=== PATIENT | male | born 1980 | race Caucasian/White ===

== ENCOUNTER 2019-12-16 17:13 | Emergency (ER) | payer SELFPAY | END 2019-12-16 17:15 | disposition left against medical advice (07) | LOC: JD.ED 17:13 | DX: Z53.21 Procedure and treatment not carried out due to patient leaving prior to being seen by health care provider (principal) ==

== ENCOUNTER 2019-12-18 21:15 | Emergency (ER) | payer SELFPAY ==
[2019-12-18 21:40] VITALS: BP 145/99; PULSE 101
[2019-12-18] MEDS ORDERED: Lactated Ringers 1,000 ML IV SCH (21:45)
--- NOTE | 2019-12-18 21:48 | EDM.PDOCBH ---
ED HPI GENERAL MEDICAL PROBLEM - General Chief Complaint: Behavioral/Psych Stated Complaint: DRANK SEAFOAM Time Seen by Provider: 12/18/19 21:34 Source of Information: Reports: Other (Female roomate of the patient) History Limitations: Reports: Altered Mental Status - History of Present Illness INITIAL COMMENTS - FREE TEXT/NARRATIVE: The patient was dropped off by his female roommate, who told the patient's nurse that the patient has been behaving bizarrely for some period of time - it is unclear at this time how long. He has apparently been hallucinating, and a couple of days ago he tried to cut his penis off. He has been drinking a lot. Today he apparently drank some Sea Foam - a petroleum distillate with a hydrocarbon-based solvent and 10-30% isopropyl alcohol, intended to clean fuel injectors. It is unknown when, how much, or why. The woman has since gone home to retrieve the bottle of Sea Foam, and I will endeavor to talk with her when she returns. Here in the ED, the patient's BP is found to be mildly elevated, with slight tachycardia and mild tachypnea. He is afebrile, saturating 99% on room air. He is, for the most part, staring straight ahead with his hands out in front of him, not answering questions, only mumbling or saying no. The patient has not been to this facility in the past, therefore we have no past medical, surgical, or social history on record. Poison control was contacted, and they apparently only recommended that we check an acetaminophen level. Looking up the safety precautions for Sea Foam, they indicate that the product "May be fatal if swallowed and enter his airways. May result in aspiration into the lungs, causing chemical pneumonia. May cause gastrointestinal irritation, nausea, vomiting and diarrhea." They indicate "Do NOT induce vomiting." It is unknown if the patient has a PCP. - Related Data Allergies Allergy/AdvReac Type Severity Reaction Status Date / Time No Known Allergies Allergy Verified 12/18/19 21:40 Home Meds: Home Meds . [No Known Home Meds] 12/18/19 [History] Past Medical History - Past Surgical History HEENT Surgical History: Reports: Oral Surgery (wisdom teeth extraction), Tonsillectomy Social & Family History - Tobacco Use Smoking Status *Q: Current Every Day Smoker Years of Tobacco use: 22 Packs/Tins Daily: 1 - Caffeine Use Caffeine Use: Reports: Other Other Caffeine Use: unable to answer - Alcohol Use Alcohol Use History: Yes - Recreational Drug Use Recreational Drug Use: Yes Recreational Drug Type: Reports: Amphetamines (Speed), Cocaine, Ecstasy, Heroin , LSD (Acid), Marijuana/Hashish, Methamphetamine, Psilocybin (Mushrooms) - Living Situation & Occupation Living situation: Reports: Single, Other (with a roomate) Occupation: Unemployed ED ROS GENERAL - Review of Systems Review Of Systems: Unable To Obtain Reason Not Obtained: Patient non-communicative ED EXAM, BEHAVIORAL HEALTH - Physical Exam Exam: See Below Exam Limited By: No Limitations (Cooperated with exam) General Appearance: Alert, WD/WN, Other Eye Exam: Bilateral Eye: EOMI, Normal Inspection Ears: Normal External Exam, Normal Canal, Hearing Grossly Normal, Normal TMs Nose: Normal Inspection, Normal Mucosa, No Blood Throat/Mouth: Normal Inspection, Normal Lips, Normal Gums, Normal Oropharynx ( No visible oropharyngeal lesions), No Airway Compromise Head: Atraumatic, Normocephalic Neck: Normal Inspection, Supple, Non-Tender, Full Range of Motion. No: Lymphadenopathy (L), Lymphadenopathy (R) Respiratory/Chest: No Respiratory Distress, Lungs Clear, Normal Breath Sounds, No Accessory Muscle Use Cardiovascular: Normal Peripheral Pulses, Regular Rate, Rhythm, No Edema, No Gallop, No JVD, No Murmur, No Rub GI/Abdominal: Normal Bowel Sounds, Soft, Non-Tender, No Organomegaly, No Distention, No Abnormal Bruit, No Mass (Male) Exam: Deferred Rectal (Males) Exam: Deferred Back Exam: Normal Inspection, Full Range of Motion, NT Extremities: Normal Inspection, Normal Range of Motion, No Pedal Edema, Normal Capillary Refill Neurological: No Motor/Sensory Deficits Skin Exam: Warm, Dry, Intact, Normal color, No rash EKG INTERPRETATION EKG Date: 12/18/19 Time: 21:49 Rhythm: NSR Rate (Beats/Min): 98 [place]: Normal P-Wave: Present QRS: Normal ST-T: Normal QT: Prolonged (QTc 477 ms) Comparison: NA - No Prior EKG COURSE, BEHAVIORAL HEALTH COMP - Course Vital Signs: Last Vital Signs Temp 36.6 C 12/18/19 21:36 Pulse 101 H 12/18/19 21:36 Resp 25 H 12/18/19 21:36 BP 145/99 H 12/18/19 21:36 Pulse Ox 99 12/18/19 21:36 Orders, Labs, Meds: Active Orders 24 hr Category Date Time Status EKG Documentation Completion [RC] STAT Care 12/18/19 21:39 Active Influenza Vaccine Charge [RC] .DISCHARGE Care 12/19/19 04:35 Active Chest 1V Frontal [CR] Stat Exams 12/18/19 21:40 Taken Lactated Ringers [Ringers, Lactated] 1,000 ml Med 12/18/19 21:45 Active IV ASDIRECTED Medication Orders Lactated Ringer's (Ringers, Lactated) 1,000 mls @ 150 mls/hr IV ASDIRECTED YAQUELIN Last Admin: 12/18/19 21:48 Dose: 150 mls/hr Laboratory Tests 12/18/19 12/18/19 12/18/19 Range/Units 21:28 21:28 21:28 WBC 15.48 H (4.23-9.07) K/mm3 RBC 4.82 (4.63-6.08) M/mm3 Hgb 15.8 (13.7-17.5) gm/dl Hct 45.7 (40.1-51.0) % MCV 94.8 H (79.0-92.2) fl MCH 32.8 H (25.7-32.2) pg MCHC 34.6 (32.2-35.5) g/dl RDW Std Deviation 45.9 H (35.1-43.9) fL Plt Count 346 H (163-337) K/mm3 MPV 9.4 (9.4-12.3) fl Neutrophils % (Manual) 87 H (40-60) % Band Neutrophils % 0 (0-10) % Lymphocytes % (Manual) 10 L (20-40) % Atypical Lymphs % 0 % Monocytes % (Manual) 1 L (2-10) % Eosinophils % (Manual) 2 (0.8-7.0) % Basophils % (Manual) 0 L (0.2-1.2) Platelet Estimate Adequate RBC Morph Comment Normal Puncture Site ABG pH (7.35-7.45) ABG pCO2 (35.0-45.0) mmHg ABG pO2 (80.0-100.0) mmHg ABG HCO3 (22.0-26.0) meq/L ABG O2 Saturation (96.0-97.0) % ABG Base Excess (-2-2.0) Sky Test A-a Gradient mmHg O2 Delivery Device FiO2 (21.00-100.00) % Sodium 137 (136-145) mEq/L Potassium 3.7 (3.5-5.1) mEq/L Chloride 100 (98-107) mEq/L Carbon Dioxide 30 (21-32) mEq/L Anion Gap 10.7 (5-15) BUN 8 (7-18) mg/dL Creatinine 0.9 (0.7-1.3) mg/dL Est Cr Clr Drug Dosing 120.84 mL/min Estimated GFR (MDRD) > 60 (>60) mL/min BUN/Creatinine Ratio 8.9 L (14-18) Glucose 97 (74-106) mg/dL Serum Osmolality 293 (280-300) mosm/kg Calcium 9.1 (8.5-10.1) mg/dL Total Bilirubin 0.3 (0.2-1.0) mg/dL AST 47 H (15-37) U/L ALT 106 H (16-63) U/L Alkaline Phosphatase 152 H (46-116) U/L Total Protein 7.4 (6.4-8.2) g/dl Albumin 3.8 (3.4-5.0) g/dl Globulin 3.6 gm/dL Albumin/Globulin Ratio 1.1 (1-2) TSH 3rd Generation 3.965 H (0.358-3.74) uIU/mL Salicylates 3.3 (2.8-20) mg/dL Urine Opiates Screen (VUQAPH=265) Ur Buprenorphine Scrn (CUTOFF=10) Ur Oxycodone Screen (ZSY4SD=608) Urine Methadone Screen (IAA5TN=547) Ur Propoxyphene Screen (WFPBEK=811) Acetaminophen 0 L (10-30) ug/mL Ur Barbiturates Screen (ZUGBAO=159) Ur Tricyclics Screen (ULCALZ=624) Ur Phencyclidine Scrn (CUTOFF=25) Ur Amphetamine Screen (RRLXAN=801) U Methamphetamines Scrn (QJFGVB=992) U Benzodiazepines Scrn (GLWGDI=296) U Cocaine Metab Screen (VHICQV=079) U Marijuana (THC) Screen (CUTOFF=50) Ethyl Alcohol 0.00 (0.00) gm% 12/18/19 12/18/19 12/19/19 Range/Units 21:58 22:44 01:36 WBC (4.23-9.07) K/mm3 RBC (4.63-6.08) M/mm3 Hgb (13.7-17.5) gm/dl Hct (40.1-51.0) % MCV (79.0-92.2) fl MCH (25.7-32.2) pg MCHC (32.2-35.5) g/dl RDW Std Deviation (35.1-43.9) fL Plt Count (163-337) K/mm3 MPV (9.4-12.3) fl Neutrophils % (Manual) (40-60) % Band Neutrophils % (0-10) % Lymphocytes % (Manual) (20-40) % Atypical Lymphs % % Monocytes % (Manual) (2-10) % Eosinophils % (Manual) (0.8-7.0) % Basophils % (Manual) (0.2-1.2) Platelet Estimate RBC Morph Comment Puncture Site Lt radial ABG pH 7.44 (7.35-7.45) ABG pCO2 40.4 (35.0-45.0) mmHg ABG pO2 90.0 (80.0-100.0) mmHg ABG HCO3 26.7 H (22.0-26.0) meq/L ABG O2 Saturation 98.0 H (96.0-97.0) % ABG Base Excess 2.7 H (-2-2.0) Sky Test Positive A-a Gradient 10 mmHg O2 Delivery Device Room air FiO2 21.00 (21.00-100.00) % Sodium 139 (136-145) mEq/L Potassium 3.9 (3.5-5.1) mEq/L Chloride 104 (98-107) mEq/L Carbon Dioxide 25 (21-32) mEq/L Anion Gap 13.9 (5-15) BUN 8 (7-18) mg/dL Creatinine 0.9 (0.7-1.3) mg/dL Est Cr Clr Drug Dosing 120.84 mL/min Estimated GFR (MDRD) > 60 (>60) mL/min BUN/Creatinine Ratio 8.9 L (14-18) Glucose 107 H (74-106) mg/dL Serum Osmolality (280-300) mosm/kg Calcium 8.8 (8.5-10.1) mg/dL Total Bilirubin 0.5 (0.2-1.0) mg/dL AST 41 H (15-37) U/L ALT 93 H (16-63) U/L Alkaline Phosphatase 135 H (46-116) U/L Total Protein 6.6 (6.4-8.2) g/dl Albumin 3.3 L (3.4-5.0) g/dl Globulin 3.3 gm/dL Albumin/Globulin Ratio 1.0 (1-2) TSH 3rd Generation (0.358-3.74) uIU/mL Salicylates (2.8-20) mg/dL Urine Opiates Screen Negative (NIBDRW=533) Ur Buprenorphine Scrn Negative (CUTOFF=10) Ur Oxycodone Screen Negative (LGV0UM=309) Urine Methadone Screen Negative (MDH9FX=583) Ur Propoxyphene Screen Presumptive positive (UQSWJW=361) Acetaminophen (10-30) ug/mL Ur Barbiturates Screen Negative (TDFZOI=796) Ur Tricyclics Screen Negative (TOOWKC=846) Ur Phencyclidine Scrn Negative (CUTOFF=25) Ur Amphetamine Screen Negative (CYPYAX=571) U Methamphetamines Scrn Negative (RGCMJY=327) U Benzodiazepines Scrn Negative (UAZVDL=169) U Cocaine Metab Screen Negative (ZAQUGE=444) U Marijuana (THC) Screen Negative (CUTOFF=50) Ethyl Alcohol (0.00) gm% 12/19/19 Range/Units 01:36 WBC (4.23-9.07) K/mm3 RBC (4.63-6.08) M/mm3 Hgb (13.7-17.5) gm/dl Hct (40.1-51.0) % MCV (79.0-92.2) fl MCH (25.7-32.2) pg MCHC (32.2-35.5) g/dl RDW Std Deviation (35.1-43.9) fL Plt Count (163-337) K/mm3 MPV (9.4-12.3) fl Neutrophils % (Manual) (40-60) % Band Neutrophils % (0-10) % Lymphocytes % (Manual) (20-40) % Atypical Lymphs % % Monocytes % (Manual) (2-10) % Eosinophils % (Manual) (0.8-7.0) % Basophils % (Manual) (0.2-1.2) Platelet Estimate RBC Morph Comment Puncture Site ABG pH (7.35-7.45) ABG pCO2 (35.0-45.0) mmHg ABG pO2 (80.0-100.0) mmHg ABG HCO3 (22.0-26.0) meq/L ABG O2 Saturation (96.0-97.0) % ABG Base Excess (-2-2.0) Sky Test A-a Gradient mmHg O2 Delivery Device FiO2 (21.00-100.00) % Sodium (136-145) mEq/L Potassium (3.5-5.1) mEq/L Chloride (98-107) mEq/L Carbon Dioxide (21-32) mEq/L Anion Gap (5-15) BUN (7-18) mg/dL Creatinine (0.7-1.3) mg/dL Est Cr Clr Drug Dosing mL/min Estimated GFR (MDRD) (>60) mL/min BUN/Creatinine Ratio (14-18) Glucose (74-106) mg/dL Serum Osmolality (280-300) mosm/kg Calcium (8.5-10.1) mg/dL Total Bilirubin (0.2-1.0) mg/dL AST (15-37) U/L ALT (16-63) U/L Alkaline Phosphatase (46-116) U/L Total Protein (6.4-8.2) g/dl Albumin (3.4-5.0) g/dl Globulin gm/dL Albumin/Globulin Ratio (1-2) TSH 3rd Generation (0.358-3.74) uIU/mL Salicylates 3.3 (2.8-20) mg/dL Urine Opiates Screen (AKUPXJ=804) Ur Buprenorphine Scrn (CUTOFF=10) Ur Oxycodone Screen (IFS1DS=499) Urine Methadone Screen (YNN0LV=925) Ur Propoxyphene Screen (ZHBBSK=093) Acetaminophen (10-30) ug/mL Ur Barbiturates Screen (JIXMQT=494) Ur Tricyclics Screen (XWAAWC=726) Ur Phencyclidine Scrn (CUTOFF=25) Ur Amphetamine Screen (RPBYLU=074) U Methamphetamines Scrn (NMXKUY=346) U Benzodiazepines Scrn (AMYPZI=596) U Cocaine Metab Screen (RSFCZL=181) U Marijuana (THC) Screen (CUTOFF=50) Ethyl Alcohol (0.00) gm% Medications Generic Name Dose Route Start Last Admin Trade Name Freq PRN Reason Stop Dose Admin Lactated Ringer's 1,000 mls @ 150 mls/hr 12/18/19 21:45 12/18/19 21:48 Ringers, Lactated IV 150 mls/hr ASDIRECTED YAQUELIN Administration Discontinued Medications Generic Name Dose Route Start Last Admin Trade Name Freq PRN Reason Stop Dose Admin Influenza Virus Vaccine 1 each 12/19/19 04:35 Pharmacy To Dose - Influenza Vaccine IM 12/19/19 04:36 ONETIME ONE Influenza Virus Vaccine 60 mcg 12/19/19 04:45 12/19/19 05:57 Fluzone Quad Syringe IM 12/19/19 04:46 60 mcg .ONCE ONE Administration Lorazepam 1 mg 12/18/19 23:44 12/18/19 23:49 Ativan IVPUSH 12/18/19 23:45 1 mg ONETIME STA Administration Medical Clearance: 12/18/19 22:53 Portable chest radiograph appears to be grossly normal. The cardiac silhouette is within normal limits. No pulmonary vascular congestion. No pleural effusions. No focal infiltrate. No pneumothorax. Formal read per the Radiologist pending. The patient's CBC is remarkable for a WBC count elevated at 15.48, but with 0% bandemia. His platelets are elevated at 346,000, with the remainder of his CBC being unremarkable. His CMP is remarkable for an AST/ALT mildly elevated at 47/106, respectively. His alkaline phosphatase is mildly elevated at 152, with the remainder of his CMP being unremarkable. His TSH is mildly elevated at 3.965. His serum osmolality is within normal limits at 293. His acetaminophen level is 0. His salicylate level is within normal limits at 3.3. His EtOH level is 0.00. His ABG is normal. His urine drug screen results are still pending. 12/18/19 23:07 The patient's urine drug screen is positive for propoxyphene, only, and is otherwise negative. Propoxyphene is a synthetic opioid found in Darvon and Darvocet, however, it is my understanding that it is no longer commercially available. Review of the [place] PMPi is negative. Propoxyphene can prolong the QT interval. 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 It's safety data website also indicates that it is "Harmful if swallowed." and "May be fatal if swallowed and enters airways." It recommends "Do NOT induce vomiting. " It further recommends that if ingested, that the patient drink 1-2 glasses of milk or water. After seeing of the patient will drink either milk or water, my plan is to keep the patient here in the ED overnight, then either admit him to the hospitalist, if his mental status is still altered, or arrange for psychiatric admission if he is lucid. 12/18/19 23:46 The patient's nurse recontacted poison control. They recommended that we repeat a CMP and salicylate level 4 hours after the initial labs. I have therefore ordered a repeat CMP and salicylate level to be drawn at 01:30. Erma DENNIS also requested some Ativan, as the patient has repeatedly gotten up. I ordered 1 mg IV. 12/19/19 04:08 The repeat CMP is remarkable for a blood glucose mildly elevated at 107, and AST /ALT mildly elevated at 41/93, and alkaline phosphatase mildly elevated at 135. Of his CMP is unremarkable. His salicylate level is within normal limits at 3.3. Notified that the patient is now more awake and lucid. 12/19/19 04:23 I sat down and talked with the patient. He is awake and alert, but I was not able to get much specific information from him. He only spoke in vague generalities. He knew that he was in the emergency department.I asked him if he knew how he got here, he told me that somebody dropped him off. I asked him if he knew why somebody dropped him off, and he told me that it was because somebody thought he needed to be dropped off. I asked him if he remembered drinking fuel injector house cleaner supervisor, and he stated that he did. I asked him why he did that, and he stated that he simply did not know. I asked him if it was because he intended to harm himself, and he stated no. I told him that people do not drink fuel injector house cleaner supervisor because it tastes good, and that the only reasonable reason someone would drink it would be to harm themselves, and to him if he agreed with me. He did. I asked him if he has ever attempted to harm himself in the past, and he said no. He denied having a prior psychiatric history, and denied ever being psychiatrically admitted previously, however, he did acknowledge that he has been to inpatient detox for both drugs and alcohol in the past. He denied that he is a heavy drinker, but was unable to tell me how many days a week he drinks, saying only "here and there". He stated that he has done numerous drugs in the past, but was unable to tell me when he last did any of them. He denied having any chronic medical problems, and stated that he does not take any medications on a regular basis. When asked him about his past surgical history, he was again vague. For example, he stated that he had, here and there, you know, feet and hands. When I asked him for specifics, if he had had surgery on his feet, he said yes. I asked him what kind of surgery he had had on his foot, and he was unable to say. I asked him if he had any pins or screws in his foot, and he said that yes, he thought he had some screws in his left foot. The same was for his hands, where he was looking at his hands and trying to decide if he had had any surgery on them. He stated that he drinks alcohol sometimes, but denied drinking heavily, and he was unable to see how many days a week he drinks. He acknowledged prior drug use, but was unable to tell me when he had used prior drugs. My conversation with the patient was discussed with Yusra DENNIS, who told me that the patient was much more lucid when she had spoken with him, asking when he could get some breakfast and whether or not he could watch television. This leads me to suspect that the patient's vague answers to me were an attempt at evasion, however, the patient's roommate report of him hallucinating and attempting to cut his penis off suggests a psychotic issue. I believe the patient would be best served if evaluated by a Psychiatrist. 12/19/19 05:01 Case discussed with Kenisha at [facility] at 04:46. Case then discussed with Dr. Leroy, Psychiatrist at [facility], at 04: 55. He accepted the patient for admission to their psychiatric unit. He requested that I place the patient under a 24-hour hold. 12/19/19 05:05 Notified by Yusra DENNIS that in her discussion with Kenisha at [facility], they have determined that the birthdate that we have for the patient is incorrect, that his actual birthday is 1980 (not 1979), and that the patient has in fact been here before. He was here in 2016 for medical clearance after smoking methamphetamine, then here again 2 days ago, but left without being seen. 12/19/19 06:37 2 members of the [facility]'s department have arrived to transport the patient to [place]. Departure - Departure Time of Disposition: 05:05 Disposition: DC/Tfer to Psych Hosp/Unit 65 Condition: Good Clinical Impression: Suicide attempt - Discharge Information *PRESCRIPTION DRUG MONITORING PROGRAM REVIEWED*: Not Applicable *COPY OF PRESCRIPTION DRUG MONITORING REPORT IN PATIENT ELZBIETA: Not Applicable Referrals: PCP,None [Primary Care Provider] - Forms: ED Department Discharge Sepsis Event Note - Evaluation Sepsis Screening Result: No Definite Risk - Focused Exam Vital Signs: Vital Signs Temp Pulse Resp BP Pulse Ox 12/18/19 21:36 36.6 C 101 H 25 H 145/99 H 99 Date Exam was Performed: 12/19/19 Time Exam was Performed: 06:37 - My Orders Last 24 Hours: My Active Orders 12/18/19 21:39 EKG Documentation Completion [RC] STAT 12/18/19 21:40 Chest 1V Frontal [CR] Stat 12/18/19 21:45 Lactated Ringers [Ringers, Lactated] 1,000 ml IV ASDIRECTED 12/19/19 04:35 Influenza Vaccine Charge [RC] .DISCHARGE - Assessment/Plan Last 24 Hours: My Active Orders 12/18/19 21:39 EKG Documentation Completion [RC] STAT 12/18/19 21:40 Chest 1V Frontal [CR] Stat 12/18/19 21:45 Lactated Ringers [Ringers, Lactated] 1,000 ml IV ASDIRECTED 12/19/19 04:35 Influenza Vaccine Charge [RC] .DISCHARGE
[2019-12-18 22:12] LABS: ACETAMINOPHEN 0 ug/mL (10-30)
[2019-12-18] MEDS ORDERED: LORazepam 2 MG/ML SDV IVPUSH STA (23:44)
[2019-12-19] MEDS ORDERED: FLU Vacc QS2019-20(6MOS+)/PF 60 MCG/0.5 ML SYRINGE IM ONE (04:45)
--- NOTE | 2019-12-19 10:28 | CR ---
Chest: Portable view of the chest was obtained. Comparison: No prior chest imaging is available. Heart size and mediastinum are normal. Lungs are clear with no acute parenchymal change. Bony structures are grossly intact. Impression: 1. Nothing acute is identified on portable chest x-ray. Diagnostic code #1 This report was dictated in MDT
== END 2019-12-19 06:43 ==
LOC: EDBD 21:15 → MERGE 21:15 → JD.ED 21:15
DX: T51.2X2A Toxic effect of 2-Propanol, intentional self-harm, initial encounter (principal); T52.0X2A Toxic effect of petroleum products, intentional self-harm, initial encounter; F17.210 Nicotine dependence, cigarettes, uncomplicated
CPT/HCPCS: 36415; 36600; 71045; 80053; 80306; 80307; 82803; 83930; 84443; 85007; 85027; 90471; 90686; 93005; 96361; 96374; 99285; J2060; J7120; 93010; G0008

== ENCOUNTER 2020-12-18 15:36 | Emergency (ER) | payer SELFPAY ==
[2020-12-18 15:53] VITALS: BP 139/96; PULSE 86
--- NOTE | 2020-12-18 16:25 | EDM.PDOCBH ---
ED HPI GENERAL MEDICAL PROBLEM - General Chief Complaint: Behavioral/Psych Stated Complaint: NOT COMMUNICATING WELL/CONFUSED Time Seen by Provider: 12/18/20 15:59 Source of Information: Reports: Patient, RN Notes Reviewed History Limitations: Reports: No Limitations - History of Present Illness INITIAL COMMENTS - FREE TEXT/NARRATIVE: Patient is a 40-year-old male who presents to the ER for the evaluation of his mental health., As she states that he was not communicating well earlier. And seems somewhat confused. She did take him to [facility] for management, but they sent him here, as he was "in a catatonic state". She thought that it almost looked like he was paralyzed. He would not talk to staff at that time. Patient is talking with this, and answers questions appropriately, he has a very flat affect. But his friend in the room states that he is "back to baseline". He did tell triage nurse, that he uses "all of the drugs". He states that marijuana was a last drug that he use, and he had he smoked yesterday. Patient denies any other health issues, and states he is not take any medications on a regular basis. Patient denies any other sick-like symptoms, fever/chills, cough/shortness of breath, nausea/vomiting/diarrhea. - Related Data Allergies Allergy/AdvReac Type Severity Reaction Status Date / Time Sulfa (Sulfonamide Allergy Severe Hives Verified 12/18/20 15:53 Antibiotics) Home Meds: Home Meds . [No Known Home Meds] 12/18/19 [History] Past Medical History - Past Health History Medical/Surgical History: Denies Medical/Surgical History Psychiatric History: Reports: Addiction, Psychosis - Infectious Disease History Infectious Disease History: Reports: Hepatitis C - Past Surgical History HEENT Surgical History: Reports: Oral Surgery, Tonsillectomy Social & Family History - Tobacco Use Tobacco Use Status *Q: Current Every Day Tobacco User Years of Tobacco use: 25 Packs/Tins Daily: 1 - Caffeine Use Caffeine Use: Reports: None Other Caffeine Use: unable to answer - Recreational Drug Use Recreational Drug Use: Yes Recreational Drug Type: Reports: Cocaine, Marijuana/Hashish, Methamphetamine - Living Situation & Occupation Living situation: Reports: Other, Single Occupation: Unemployed ED ROS GENERAL - Review of Systems Review Of Systems: Comprehensive ROS is negative, except as noted in HPI. ED EXAM, BEHAVIORAL HEALTH - Physical Exam Exam: See Below Exam Limited By: No Limitations General Appearance: Alert, WD/WN, No Apparent Distress Eye Exam: Bilateral Eye: EOMI, Normal Inspection, PERRL Respiratory/Chest: No Respiratory Distress, Lungs Clear, Normal Breath Sounds, No Accessory Muscle Use, Chest Non-Tender Cardiovascular: Normal Peripheral Pulses, Regular Rate, Rhythm, No Edema GI/Abdominal: Normal Bowel Sounds, Soft, Non-Tender, No Distention, No Mass Extremities: Normal Inspection, Normal Capillary Refill Neurological: Alert Psychiatric: Flat Affect, Withdrawn. No: Suicidal Plan, Auditory Hallucinations, Visual Hallucinations Skin Exam: Warm, Dry, Intact, Normal color, No rash COURSE, BEHAVIORAL HEALTH COMP - Course Vital Signs: Last Vital Signs Temp 98.1 F 12/18/20 15:49 Pulse 86 12/18/20 15:49 Resp 16 12/18/20 15:49 BP 139/96 H 12/18/20 15:49 Pulse Ox 100 12/18/20 15:49 Orders, Labs, Meds: Active Orders 24 hr Category Date Time Status CBC WITH AUTO DIFF [HEME] Stat Lab 12/18/20 16:16 Stop Req CMP [COMPREHENSIVE METABOLIC PN,CMP] [CHEM] Stat Lab 12/18/20 16:16 Stop Req Discharge vs Psych Eval/Treatment:: 12/18/20 16:28 Patient presents to the ER for his mental health evaluation, as far as I can tell, and that the friend states, patient is back to baseline for himself, he is declining laboratory evaluation at this time. It is my professional opinion that he is medically cleared at this point, he is not having any auditory, visual hallucinations, he is not suicidal. We will discharge him home with general conservative recommendations have him follow-up as needed for ongoing mental health issues. Departure - Departure Time of Disposition: 16:23 Disposition: Home, Self-Care 01 Condition: Good Clinical Impression: No abnormality detected on mental health assessment - Discharge Information *PRESCRIPTION DRUG MONITORING PROGRAM REVIEWED*: No *COPY OF PRESCRIPTION DRUG MONITORING REPORT IN PATIENT ELZBIETA: No Forms: ED Department Discharge Additional Instructions: You were evaluated in the ER today for your mental health. Thorough evaluation was done at today's visit, you declined labs for today's purposes. At this point in time you are not suffering from any neurologic or other mental health deficits that is made apparent. Please continue all other medications as previously prescribed, if you are taking medications. Follow-up with your regular care provider as needed for your ongoing mental health. Please return to the ER at any time if your symptoms change or worsen. Sepsis Event Note (ED) - Evaluation Sepsis Screening Result: No Definite Risk - Focused Exam Vital Signs: Vital Signs Temp Pulse Resp BP Pulse Ox 12/18/20 15:49 98.1 F 86 16 139/96 H 100 - My Orders Last 24 Hours: My Active Orders 12/18/20 16:16 CBC WITH AUTO DIFF [HEME] Stat CMP [COMPREHENSIVE METABOLIC PN,CMP] [CHEM] Stat - Assessment/Plan Last 24 Hours: My Active Orders 12/18/20 16:16 CBC WITH AUTO DIFF [HEME] Stat CMP [COMPREHENSIVE METABOLIC PN,CMP] [CHEM] Stat
== END 2020-12-18 16:40 | disposition home or self-care (01) ==
LOC: JD.ED 15:36
DX: Z00.8 Encounter for other general examination (principal); Z88.2 Allergy status to sulfonamides; Z72.0 Tobacco use
CPT/HCPCS: 99282

== ENCOUNTER 2020-12-27 13:31 | Emergency (ER) | payer SELFPAY ==
[2020-12-27 13:43] VITALS: BP 109/93; PULSE 110
--- NOTE | 2020-12-27 13:48 | EDM.PDOC ---
ED HPI GENERAL MEDICAL PROBLEM - General Chief Complaint: Behavioral/Psych Stated Complaint: MEDICAL CLEARANCE Time Seen by Provider: 12/27/20 13:41 - History of Present Illness INITIAL COMMENTS - FREE TEXT/NARRATIVE: 40-year-old male brought into the emergency room for medical clearance. The patient was found by law enforcement trespassing they do not believe this was an intentional event and they thought he was more confused than normal and would get incarcerated for his own protection. However at this time they have released him. The patient was brought in he would answer simple yes and no questions and he was pretty good about following directions during the interview and during the exam. He does not appear to be in any acute distress. - Related Data Allergies Allergy/AdvReac Type Severity Reaction Status Date / Time Sulfa (Sulfonamide Allergy Severe Hives Verified 12/18/20 15:53 Antibiotics) Home Meds: Home Meds . [Unable to Verify Home Med List] 12/27/20 [History] Past Medical History - Past Health History Medical/Surgical History: Denies Medical/Surgical History Psychiatric History: Reports: Addiction, Psychosis - Infectious Disease History Infectious Disease History: Reports: Hepatitis C - Past Surgical History HEENT Surgical History: Reports: Oral Surgery, Tonsillectomy Social & Family History - Caffeine Use Caffeine Use: Reports: None Other Caffeine Use: unable to answer - Living Situation & Occupation Living situation: Reports: Other, Single Occupation: Unemployed ED ROS GENERAL - Review of Systems Review Of Systems: See Below Constitutional: Reports: No Symptoms Respiratory: Reports: No Symptoms Cardiovascular: Reports: No Symptoms GI/Abdominal: Reports: No Symptoms Musculoskeletal: Reports: No Symptoms Neurological: Denies: Headache ED EXAM, GENERAL - Physical Exam Exam: See Below Exam Limited By: Other (He answers simple questions with yes and no) General Appearance: Alert, No Apparent Distress Eye Exam: Bilateral Eye: Normal Inspection Ears: Normal External Exam, Normal Canal, Hearing Grossly Normal, Normal TMs Nose: Normal Inspection, Normal Mucosa, No Blood Throat/Mouth: Normal Inspection, Normal Lips, Normal Teeth, Normal Gums, Normal Oropharynx, Normal Voice, No Airway Compromise Head: Atraumatic, Normocephalic Neck: Normal Inspection, Supple, Non-Tender, Full Range of Motion Respiratory/Chest: No Respiratory Distress, Lungs Clear, Normal Breath Sounds Cardiovascular: Regular Rate, Rhythm, No Edema, No Murmur GI/Abdominal: Normal Bowel Sounds, Soft, Non-Tender Extremities: Normal Inspection, No Pedal Edema Neurological: Alert Psychiatric: No: Anxious Skin Exam: Warm, Dry, Intact Course - Vital Signs Last Recorded V/S: Last Vital Signs Temp 36.1 C 12/27/20 13:39 Pulse 110 H 12/27/20 13:39 Resp 16 12/27/20 13:39 BP 109/93 H 12/27/20 13:39 Pulse Ox 96 12/27/20 13:39 - Orders/Labs/Meds Orders: Active Orders 24 hr Category Date Time Status DRUG SCREEN, URINE [URCHEM] Stat Lab 12/27/20 13:49 Ordered UA RFX CRISS AND CULT IF INDIC [URIN] Stat Lab 12/27/20 13:49 Ordered Labs: Laboratory Tests 12/27/20 12/27/20 Range/Units 14:03 14:03 WBC 10.14 H (4.23-9.07) K/mm3 RBC 5.15 (4.63-6.08) M/mm3 Hgb 16.4 (13.7-17.5) gm/dl Hct 48.2 (40.1-51.0) % MCV 93.6 H (79.0-92.2) fl MCH 31.8 (25.7-32.2) pg MCHC 34.0 (32.2-35.5) g/dl RDW Std Deviation 44.0 H (35.1-43.9) fL Plt Count 329 (163-337) K/mm3 MPV 9.8 (9.4-12.3) fl Neut % (Auto) 60.3 (34.0-67.9) % Lymph % (Auto) 22.9 (21.8-53.1) % Major % (Auto) 12.4 H (5.3-12.2) % Eos % (Auto) 3.8 (0.8-7.0) Baso % (Auto) 0.4 (0.1-1.2) % Neut # (Auto) 6.11 H (1.78-5.38) K/mm3 Lymph # (Auto) 2.32 (1.32-3.57) K/mm3 Major # (Auto) 1.26 H (0.30-0.82) K/mm3 Eos # (Auto) 0.39 (0.04-0.54) K/mm3 Baso # (Auto) 0.04 (0.01-0.08) K/mm3 Sodium 137 (136-145) mEq/L Potassium 4.2 (3.5-5.1) mEq/L Chloride 99 (98-107) mEq/L Carbon Dioxide 29 (21-32) mEq/L Anion Gap 13.2 (5-15) BUN 11 (7-18) mg/dL Creatinine 1.2 (0.7-1.3) mg/dL Est Cr Clr Drug Dosing 88.02 mL/min Estimated GFR (MDRD) > 60 (>60) mL/min BUN/Creatinine Ratio 9.2 L (14-18) Glucose 134 H (74-106) mg/dL Calcium 9.4 (8.5-10.1) mg/dL Total Bilirubin 0.4 (0.2-1.0) mg/dL AST 23 (15-37) U/L ALT 33 (16-63) U/L Alkaline Phosphatase 124 H (46-116) U/L Total Protein 7.8 (6.4-8.2) g/dl Albumin 4.2 (3.4-5.0) g/dl Globulin 3.6 gm/dL Albumin/Globulin Ratio 1.2 (1-2) Ethyl Alcohol 0.00 (0.00) gm% - Re-Assessments/Exams Free Text/Narrative Re-Assessment/Exam: 12/27/20 15:38 Patient was brought in for clearance to go to retirement however police decided to release him. And now he would like to go home. We will discharge him Departure - Departure Time of Disposition: 15:39 Disposition: Home, Self-Care 01 Clinical Impression: Medical clearance for incarceration - Discharge Information Referrals: PCP,None [Primary Care Provider] - Forms: ED Department Discharge Additional Instructions: Return to the emergency room with any questions problems or concerning symptoms. Follow-up with your regular physician this next week. Sepsis Event Note (ED) - Focused Exam Vital Signs: Vital Signs Temp Pulse Resp BP Pulse Ox 12/27/20 13:39 36.1 C 110 H 16 109/93 H 96 - My Orders Last 24 Hours: My Active Orders 12/27/20 13:49 DRUG SCREEN, URINE [URCHEM] Stat UA RFX CRISS AND CULT IF INDIC [URIN] Stat - Assessment/Plan Last 24 Hours: My Active Orders 12/27/20 13:49 DRUG SCREEN, URINE [URCHEM] Stat UA RFX CRISS AND CULT IF INDIC [URIN] Stat
== END 2020-12-27 15:53 | disposition home or self-care (01) ==
LOC: JD.ED 13:31
DX: Z88.2 Allergy status to sulfonamides
CPT/HCPCS: 36415; 80053; 80307; 85025; 99282; 99283

== ENCOUNTER 2020-12-29 18:34 | Emergency (ER) | payer SELFPAY ==
[2020-12-29 18:47] VITALS: BP 129/107; PULSE 83
--- NOTE | 2020-12-29 19:10 | EDM.PDOC ---
ED HPI GENERAL MEDICAL PROBLEM - General Chief Complaint: Behavioral/Psych Stated Complaint: UNRESPONSIVE,CONFUSED Time Seen by Provider: 12/29/20 19:10 - History of Present Illness INITIAL COMMENTS - FREE TEXT/NARRATIVE: 40-year-old male brought in by his friend with recurrence of unusual movements. Patient has these episodes where he becomes less verbally responsive he is awake and alert and he is fixated on upper extremity movements. These movements are usually held in front of him and he usually focuses his eyes on them. Yesterday the patient did very well and was himself this morning everything was fine he went outside to smoke a cigarette and the movement disorder started up it has not resolved yet. Patient denies any pain. The patient is not on any routine medications that we can identify at this point however he has had psychiatric issues in the past - Related Data Allergies Allergy/AdvReac Type Severity Reaction Status Date / Time Sulfa (Sulfonamide Allergy Severe Hives Verified 12/29/20 18:47 Antibiotics) Home Meds: Home Meds . [Unable to Verify Home Med List] 12/27/20 [History] Past Medical History - Past Health History Medical/Surgical History: Denies Medical/Surgical History Psychiatric History: Reports: Addiction, Psychosis - Infectious Disease History Infectious Disease History: Reports: Hepatitis C - Past Surgical History HEENT Surgical History: Reports: Oral Surgery, Tonsillectomy Social & Family History - Family History Family Medical History: No Pertinent Family History - Tobacco Use Tobacco Use Status *Q: Current Every Day Tobacco User Years of Tobacco use: 20 Packs/Tins Daily: 1 - Caffeine Use Caffeine Use: Reports: None Other Caffeine Use: unable to answer - Recreational Drug Use Recreational Drug Use: Yes Recreational Drug Type: Reports: Methamphetamine - Living Situation & Occupation Living situation: Reports: Other, Single Occupation: Unemployed ED ROS GENERAL - Review of Systems Review Of Systems: See Below Constitutional: Reports: No Symptoms HEENT: Reports: No Symptoms Respiratory: Reports: No Symptoms Cardiovascular: Reports: No Symptoms Endocrine: Reports: No Symptoms GI/Abdominal: Reports: No Symptoms : Reports: No Symptoms Musculoskeletal: Reports: No Symptoms Skin: Reports: No Symptoms Neurological: Reports: Confusion 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 No: Facial Swelling, Facial Tenderness Neck: Normal Inspection, Supple, Non-Tender Respiratory/Chest: No Respiratory Distress, Lungs Clear, Normal Breath Sounds Cardiovascular: Regular Rate, Rhythm, No Edema, No Murmur Back Exam: Normal Inspection. No: CVA Tenderness (L), CVA Tenderness (R) Extremities: Normal Inspection, No Pedal Edema Neurological: Other (He appears to have a functional movement disorder it comes on on its own and then needs completely normal limits absent it seems to mostly affect his upper extremities with his arms in a flexed position his hands making nonrhythmical movement and then gets better is unclear to me of any trigger this) Course - Vital Signs Last Recorded V/S: Last Vital Signs Temp 36.2 C 12/29/20 18:43 Pulse 83 12/29/20 18:43 Resp 16 12/29/20 18:43 BP 129/107 H 12/29/20 18:43 Pulse Ox 97 12/29/20 18:43 - Orders/Labs/Meds Orders: Active Orders 24 hr Category Date Time Status Head wo Cont [CT] Stat Exams 12/29/20 19:44 Taken CERULOPLASMIN [REF] Stat Lab 12/29/20 20:04 Received Labs: Laboratory Tests 12/29/20 12/29/20 12/29/20 Range/Units 20:04 20:04 20:04 WBC 6.43 (4.23-9.07) K/mm3 RBC 4.77 (4.63-6.08) M/mm3 Hgb 15.0 (13.7-17.5) gm/dl Hct 45.2 (40.1-51.0) % MCV 94.8 H (79.0-92.2) fl MCH 31.4 (25.7-32.2) pg MCHC 33.2 (32.2-35.5) g/dl RDW Std Deviation 44.0 H (35.1-43.9) fL Plt Count 278 (163-337) K/mm3 MPV 9.7 (9.4-12.3) fl Neut % (Auto) 49.3 (34.0-67.9) % Lymph % (Auto) 29.7 (21.8-53.1) % [place] % (Auto) 13.4 H (5.3-12.2) % Eos % (Auto) 6.7 (0.8-7.0) Baso % (Auto) 0.6 (0.1-1.2) % Neut # (Auto) 3.17 (1.78-5.38) K/mm3 Lymph # (Auto) 1.91 (1.32-3.57) K/mm3 [place] # (Auto) 0.86 H (0.30-0.82) K/mm3 Eos # (Auto) 0.43 (0.04-0.54) K/mm3 Baso # (Auto) 0.04 (0.01-0.08) K/mm3 Sodium 138 (136-145) mEq/L Potassium 4.3 (3.5-5.1) mEq/L Chloride 104 (98-107) mEq/L Carbon Dioxide 28 (21-32) mEq/L Anion Gap 10.3 (5-15) BUN 8 (7-18) mg/dL Creatinine 0.8 (0.7-1.3) mg/dL Est Cr Clr Drug Dosing 124.20 mL/min Estimated GFR (MDRD) > 60 (>60) mL/min BUN/Creatinine Ratio 10.0 L (14-18) Glucose 99 (74-106) mg/dL Calcium 8.3 L (8.5-10.1) mg/dL Total Bilirubin 0.3 (0.2-1.0) mg/dL AST 16 (15-37) U/L ALT 25 (16-63) U/L Alkaline Phosphatase 93 (46-116) U/L Total Protein 6.3 L (6.4-8.2) g/dl Albumin 3.4 (3.4-5.0) g/dl Globulin 2.9 gm/dL Albumin/Globulin Ratio 1.2 (1-2) TSH 3rd Generation 0.862 (0.358-3.74) uIU/mL Urine Color (Yellow) Urine Appearance (Clear) Urine pH (5.0-8.0) Ur Specific [place] (1.005-1.030) Urine Protein (Negative) Urine Glucose (UA) (Negative) Urine Ketones (Negative) Urine Occult Blood (Negative) Urine Nitrite (Negative) Urine Bilirubin (Negative) Urine Urobilinogen (0.2-1.0) Ur Leukocyte Esterase (Negative) Salicylates 1.2 L (2.8-20) mg/dL Urine Opiates Screen (AJAQRQ=238) Ur Buprenorphine Scrn (CUTOFF=10) Ur Oxycodone Screen (OSZ9ZC=385) Urine Methadone Screen (XPE4NK=177) Ur Propoxyphene Screen (BYFYEE=643) Acetaminophen 0 L (10-30) ug/mL Ur Barbiturates Screen (OEASUW=867) Ur Tricyclics Screen (MUTRXB=794) Ur Phencyclidine Scrn (CUTOFF=25) Ur Amphetamine Screen (NTIOHY=537) U Methamphetamines Scrn (WXBVVC=859) U Benzodiazepines Scrn (NIXOJW=214) U Cocaine Metab Screen (PXUWJE=996) U Marijuana (THC) Screen (CUTOFF=50) Ethyl Alcohol 0.00 (0.00) gm% 12/29/20 12/29/20 Range/Units 20:35 20:35 WBC (4.23-9.07) K/mm3 RBC (4.63-6.08) M/mm3 Hgb (13.7-17.5) gm/dl Hct (40.1-51.0) % MCV (79.0-92.2) fl MCH (25.7-32.2) pg MCHC (32.2-35.5) g/dl RDW Std Deviation (35.1-43.9) fL Plt Count (163-337) K/mm3 MPV (9.4-12.3) fl Neut % (Auto) (34.0-67.9) % Lymph % (Auto) (21.8-53.1) % [place] % (Auto) (5.3-12.2) % Eos % (Auto) (0.8-7.0) Baso % (Auto) (0.1-1.2) % Neut # (Auto) (1.78-5.38) K/mm3 Lymph # (Auto) (1.32-3.57) K/mm3 [place] # (Auto) (0.30-0.82) K/mm3 Eos # (Auto) (0.04-0.54) K/mm3 Baso # (Auto) (0.01-0.08) K/mm3 Sodium (136-145) mEq/L Potassium (3.5-5.1) mEq/L Chloride (98-107) mEq/L Carbon Dioxide (21-32) mEq/L Anion Gap (5-15) BUN (7-18) mg/dL Creatinine (0.7-1.3) mg/dL Est Cr Clr Drug Dosing mL/min Estimated GFR (MDRD) (>60) mL/min BUN/Creatinine Ratio (14-18) Glucose (74-106) mg/dL Calcium (8.5-10.1) mg/dL Total Bilirubin (0.2-1.0) mg/dL AST (15-37) U/L ALT (16-63) U/L Alkaline Phosphatase (46-116) U/L Total Protein (6.4-8.2) g/dl Albumin (3.4-5.0) g/dl Globulin gm/dL Albumin/Globulin Ratio (1-2) TSH 3rd Generation (0.358-3.74) uIU/mL Urine Color Yellow (Yellow) Urine Appearance Clear (Clear) Urine pH 7.5 (5.0-8.0) Ur Specific [place] 1.025 (1.005-1.030) Urine Protein Negative (Negative) Urine Glucose (UA) Negative (Negative) Urine Ketones Negative (Negative) Urine Occult Blood Negative (Negative) Urine Nitrite Negative (Negative) Urine Bilirubin Negative (Negative) Urine Urobilinogen 0.2 (0.2-1.0) Ur Leukocyte Esterase Negative (Negative) Salicylates (2.8-20) mg/dL Urine Opiates Screen Negative (LJGOAL=009) Ur Buprenorphine Scrn Negative (CUTOFF=10) Ur Oxycodone Screen Negative (WQV2SO=542) Urine Methadone Screen Negative (ACB6PB=831) Ur Propoxyphene Screen Negative (TDKSWM=954) Acetaminophen (10-30) ug/mL Ur Barbiturates Screen Negative (TUOTLH=632) Ur Tricyclics Screen Negative (KTBZZT=811) Ur Phencyclidine Scrn Negative (CUTOFF=25) Ur Amphetamine Screen Presumptive positive H (LMQUIS=825) U Methamphetamines Scrn Presumptive positive H (UIJNCY=878) U Benzodiazepines Scrn Presumptive positive H (EJKKNH=157) U Cocaine Metab Screen Negative (EYCBJT=826) U Marijuana (THC) Screen Presumptive positive H (CUTOFF=50) Ethyl Alcohol (0.00) gm% - Re-Assessments/Exams Free Text/Narrative Re-Assessment/Exam: 12/29/20 21:25 Copper and ceruloplasmin still pending. Head CT shows no acute changes chemistries are from most part unremarkable urine drug screen is positive for amphetamine methamphetamine benzodiazepines and THC. 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 I have strongly recommended a follow-up in the clinic so he can establish a regular provider to help sort this out and consider sending him to neurology and/or psychiatry if it is deemed n ecessary for neurologic and/or psychiatric consultation. Departure - Departure Time of Disposition: 21:27 Disposition: Home, Self-Care 01 Clinical Impression: Functional movement disorder - Discharge Information Referrals: PCP,None [Primary Care Provider] - Forms: ED Department Discharge Additional Instructions: Follow-up in the hospital clinic this next week for recheck [phone] You may also follow-up in the emergency room however you will get better care in the clinic and will be able to establish see in the same person time and time again in the clinic. Avoid illicit drugs. Sepsis Event Note (ED) - Evaluation Sepsis Screening Result: No Definite Risk - Focused Exam Vital Signs: Vital Signs Temp Pulse Resp BP Pulse Ox 12/29/20 18:43 36.2 C 83 16 129/107 H 97 - My Orders Last 24 Hours: My Active Orders 12/29/20 19:44 Head wo Cont [CT] Stat 12/29/20 20:04 CERULOPLASMIN [REF] Stat - Assessment/Plan Last 24 Hours: My Active Orders 12/29/20 19:44 Head wo Cont [CT] Stat 12/29/20 20:04 CERULOPLASMIN [REF] Stat
[2020-12-29 20:45] LABS: ACETAMINOPHEN 0 ug/mL (10-30)
--- NOTE | 2021-01-01 09:36 | CT ---
Head CT Technique: Multiple axial sections through the brain were obtained. Intravenous contrast was not utilized. Comparison: No prior intracranial imaging is available. Findings: Ventricles along with basal cisterns and sulci over the convexities are within normal limits for the patient's age. No abnormal parenchymal densities are seen. No evidence of intracranial hemorrhage is seen. No midline shift or mass-effect is seen. Bone window settings were reviewed. Visualized mastoid sinuses and paranasal sinuses show nothing acute. No acute calvarial abnormality is appreciated. Impression: 1. Nothing acute is seen on noncontrast head CT study. Diagnostic code #1 I agree with preliminary report from [facility], finalized on 12/29/20, 9:51 PM CDT, code 1
== END 2020-12-29 21:37 | disposition home or self-care (01) ==
LOC: JD.ED 18:34
DX: D71 Functional disorders of polymorphonuclear neutrophils (principal); Z72.0 Tobacco use; Z88.2 Allergy status to sulfonamides
CPT/HCPCS: 36415; 70450; 70450-26; 80053; 80143; 80179; 80306; 80307; 81003; 82390; 84443; 85025; 99284; 99284-25

== ENCOUNTER 2021-01-20 12:33 | Emergency (ER) | payer SELFPAY ==
[2021-01-20 13:17] VITALS: BP 143/95; PULSE 68
--- NOTE | 2021-01-20 13:48 | EDM.PDOCBH ---
ED HPI GENERAL MEDICAL PROBLEM - General Chief Complaint: Behavioral/Psych Stated Complaint: MED CLEARANCE Time Seen by Provider: 01/20/21 13:14 Source of Information: Reports: Patient, Significant Other History Limitations: Reports: No Limitations - History of Present Illness INITIAL COMMENTS - FREE TEXT/NARRATIVE: Patient is here for medical evaluation. Patient was evaluated more last by the [facility] mental health provider and they thought that the patient better to come in here for any possibility for altered mental status. The significant other that is been with the patient over the last year noted last evening that he was not talking like usual. No focal weakness falling head injury or slurred speech slept well and ate breakfast this morning and then started to not talk is much again is not very clear as to why she called the [facility] however he does not apparently have any history of any underlying psychiatric disorder is not homicidal suicidal denies any hallucinations. He is denying any drug use, no alcohol use not complaining of any headaches chest pain shortness of breath breathing problems no abdominal pain no nausea vomiting or diarrhea no burning pain or blood in the urine no muscle aches or pains no stiff neck no skin rash - Related Data Allergies Allergy/AdvReac Type Severity Reaction Status Date / Time Sulfa (Sulfonamide Allergy Intermediate Hives Verified 01/20/21 13:17 Antibiotics) Home Meds: Home Meds . [No Known Home Meds] 01/20/21 [History] Past Medical History - Past Health History Medical/Surgical History: Denies Medical/Surgical History Psychiatric History: Reports: Addiction, Psychosis - Infectious Disease History Infectious Disease History: Reports: Hepatitis C - Past Surgical History HEENT Surgical History: Reports: Oral Surgery, Tonsillectomy Social & Family History - Family History Family Medical History: No Pertinent Family History - Tobacco Use Tobacco Use Status *Q: Current Some Day Tobacco User Years of Tobacco use: 12 Packs/Tins Daily: 0.2 - Caffeine Use Caffeine Use: Reports: None Other Caffeine Use: unable to answer - Recreational Drug Use Recreational Drug Use: Yes Drug Use in Last 12 Months: Yes Recreational Drug Type: Reports: Cocaine, Heroin, Marijuana/Hashish, Methamphetamine Recreational Drug Use Frequency: Patient Refuses To Answer - Living Situation & Occupation Living situation: Reports: Other, Single Occupation: Unemployed ED ROS GENERAL - Review of Systems Review Of Systems: See Below Constitutional: Denies: Fever, Chills, Night Sweats, Diaphoresis HEENT: Denies: Vision Change Respiratory: Denies: Shortness of Breath, Cough Cardiovascular: Denies: Chest Pain GI/Abdominal: Denies: Abdominal Pain, Diarrhea, Nausea, Vomiting : Denies: Dysuria, Frequency, Hematuria Musculoskeletal: Denies: Muscle Pain Neurological: Denies: Confusion, Dizziness, Headache, Numbness, Syncope, Trouble Speaking, Weakness, Change in Speech, Gait Disturbance Psychiatric: Denies: Anxiety, Confusion, Depression, Hallucinations, Homicidal Ideation, Suicidal Ideation ED EXAM, BEHAVIORAL HEALTH - Physical Exam Exam: See Below Exam Limited By: No Limitations Eye Exam: Bilateral Eye: EOMI, PERRL Ears: Normal TMs Throat/Mouth: Normal Inspection, Normal Oropharynx Head: Atraumatic Neck: Normal Inspection. No: Tender Lateral, Tender Midline Respiratory/Chest: No Respiratory Distress, Lungs Clear, Normal Breath Sounds Cardiovascular: Normal Peripheral Pulses, Regular Rate, Rhythm, No Edema GI/Abdominal: Normal Bowel Sounds, Soft, Non-Tender, No Distention, No Mass Extremities: Normal Inspection, Normal Range of Motion Neurological: Alert, Normal Mood/Affect, CN II-XII Intact, Normal Gait, No Motor/Sensory Deficits, Oriented x 3 Psychiatric: Alert, Normal Affect, Normal Cognition Skin Exam: Warm COURSE, BEHAVIORAL HEALTH COMP - Course Vital Signs: Last Vital Signs Temp 96.9 F 01/20/21 13:13 Pulse 68 01/20/21 13:13 Resp 12 01/20/21 13:13 BP 143/95 H 01/20/21 13:13 Pulse Ox 98 01/20/21 13:13 Re-Assessment/Re-Exam: No acute findings on my exam do not feel there is any other indication for urgent or emergent work-up or evaluation here in the department. Patient is stable for going home, significant other is not concerned for any harm to herself or to him, no other specific symptoms at present. Recommend follow-up with her primary care if they have 1 otherwise return precautions given Departure - Departure Time of Disposition: 13:50 Disposition: Home, Self-Care 01 Condition: Good Clinical Impression: No abnormality detected on mental health assessment Altered mental state Qualifiers: Altered mental status type: transient alteration of awareness Qualified Code(s): R40.4 - Transient alteration of awareness - Discharge Information Referrals: PCP,None [Primary Care Provider] - Forms: ED Department Discharge Additional Instructions: Return to the emergency department with any headaches vision problems balance problems weakness slurred speech depression hallucinations chest pain breathing difficulty or other acute medical conditions. Sepsis Event Note (ED) - Evaluation Sepsis Screening Result: No Definite Risk - Focused Exam Vital Signs: Vital Signs Temp Pulse Resp BP Pulse Ox 01/20/21 13:13 96.9 F 68 12 143/95 H 98
== END 2021-01-20 14:01 | disposition home or self-care (01) ==
LOC: JD.ED 12:33
DX: R40.4 Transient alteration of awareness (principal); Z88.2 Allergy status to sulfonamides; Z72.0 Tobacco use
CPT/HCPCS: 99282

== ENCOUNTER 2021-02-07 03:33 | Emergency (ER) | payer SELFPAY ==
[2021-02-07 03:48] VITALS: BP 159/102; PULSE 89
--- NOTE | 2021-02-07 04:40 | EDM.PDOCBH ---
ED HPI GENERAL MEDICAL PROBLEM - General Chief Complaint: Behavioral/Psych Stated Complaint: CAME IN BY [employer] Time Seen by Provider: 02/07/21 03:55 Source of Information: Reports: RN (Harmony) History Limitations: Reports: Other (Asleep) - History of Present Illness INITIAL COMMENTS - FREE TEXT/NARRATIVE: Mr. Thorpe is a 40-year-old man who is now brought to the ED by a member of the [employer], who informed us that he was called due to the patient wandering in the street. The patient had told the commissioned police officer that he had taken a bunch of methamphetamine. The patient was brought here - it is not really clear why. He walked in on his own, got onto the gurney, then promptly fell asleep. The commissioned police officer than left. Here in the ED, the patient's initial BP is found to be modestly elevated 159/102. He is otherwise hemodynamically stable, afebrile, saturating 98 to 100% on room air. He is asleep, in no acute distress. Due to the patient's somnolence, a recent ROS is not obtainable. PMHx/PSHx/SocHx obtained from prior medical records. Harmony DENNIS was contacted by a friend of the patient, who has been looking for him. She will come to pick him up. - Related Data Allergies Allergy/AdvReac Type Severity Reaction Status Date / Time Sulfa (Sulfonamide Allergy Intermediate Hives Verified 02/07/21 03:48 Antibiotics) Home Meds: Home Meds . [Unable to Verify Home Med List] 02/07/21 [History] Past Medical History - Past Health History Medical/Surgical History: Denies Medical/Surgical History Psychiatric History: Reports: Addiction, Psychosis - Infectious Disease History Infectious Disease History: Reports: Hepatitis C Other Infectious Disease History: pt refusing to look at nurse or answer further questions - Past Surgical History HEENT Surgical History: Reports: Oral Surgery, Tonsillectomy Social & Family History - Family History Family Medical History: No Pertinent Family History - Tobacco Use Tobacco Use Status *Q: Unknown Ever Used Tobacco - Caffeine Use Caffeine Use: Reports: None Other Caffeine Use: unable to answer - Recreational Drug Use Recreational Drug Use: Yes - Living Situation & Occupation Living situation: Reports: Other, Single Occupation: Unemployed ED ROS GENERAL - Review of Systems Review Of Systems: Unable To Obtain Reason Not Obtained: Patient sleeping ED EXAM, BEHAVIORAL HEALTH - Physical Exam Exam: See Below Exam Limited By: Other (Patient sleeping) General Appearance: WD/WN, No Apparent Distress Ears: Normal External Exam Nose: Normal Inspection Throat/Mouth: Normal Inspection, Normal Lips, No Airway Compromise Head: Atraumatic, Normocephalic Neck: Normal Inspection Respiratory/Chest: No Respiratory Distress, Lungs Clear, Normal Breath Sounds, No Accessory Muscle Use Cardiovascular: Normal Peripheral Pulses, Regular Rate, Rhythm, No Edema, No Gallop, No JVD, No Murmur, No Rub GI/Abdominal: Normal Bowel Sounds, Soft, No Organomegaly, No Distention, No Abnormal Bruit, No Mass Back Exam: Normal Inspection, Full Range of Motion, NT Extremities: Normal Inspection, No Pedal Edema, Normal Capillary Refill Neurological: No Motor/Sensory Deficits (walked into ED) Skin Exam: Warm, Dry, Intact, Normal color, No rash COURSE, BEHAVIORAL HEALTH COMP - Course Vital Signs: Last Vital Signs Temp 36.9 C 02/07/21 03:43 Pulse 89 02/07/21 03:43 Resp 18 02/07/21 03:43 BP 159/102 H 02/07/21 03:43 Pulse Ox 98 02/07/21 03:43 Departure - Departure Time of Disposition: 04:40 Disposition: Home, Self-Care 01 Condition: Good Clinical Impression: Methamphetamine abuse - Discharge Information *PRESCRIPTION DRUG MONITORING PROGRAM REVIEWED*: No *COPY OF PRESCRIPTION DRUG MONITORING REPORT IN PATIENT ELZBIETA: No Referrals: PCP,None [Primary Care Provider] - Additional Instructions: You were seen in the emergency room after being brought by the police, after they were called due to your wandering in the street. You informed of the police that you had taken a bunch of methamphetamine. We strongly recommend that you seek professional help with respect to your methamphetamine abuse by going to [facility]: [address] [place] [phone] If any other problems, please do not hesitate to return to the ER. Sepsis Event Note (ED) - Evaluation Sepsis Screening Result: No Definite Risk - Focused Exam Vital Signs: Vital Signs Temp Pulse Resp BP Pulse Ox 02/07/21 03:43 36.9 C 89 18 159/102 H 98
== END 2021-02-07 05:08 | disposition home or self-care (01) ==
LOC: JD.ED 03:33
DX: F15.10 Other stimulant abuse, uncomplicated (principal); Z88.2 Allergy status to sulfonamides
CPT/HCPCS: 99282; 99284

== ENCOUNTER 2021-02-21 16:24 | Emergency (ER) | payer SELFPAY ==
[2021-02-21 16:40] VITALS: BP 150/95; PULSE 104
--- NOTE | 2021-02-21 16:59 | EDM.PDOC ---
ED HPI GENERAL MEDICAL PROBLEM - General Chief Complaint: Behavioral/Psych Stated Complaint: SHAKEY/OVER EATING Time Seen by Provider: 02/21/21 16:44 Source of Information: Reports: Patient, Old Records, RN Notes Reviewed History Limitations: Reports: Intoxication (appears to be acutely intoxicated by methamphetamine), Uncooperative - History of Present Illness INITIAL COMMENTS - FREE TEXT/NARRATIVE: Patient is a 40-year-old female who is brought to the ER by his concerned friend for the evaluation of his shaking. The friend that has been helping him out, states that he has been eating a lot of house at home, and then also took a bunch of MiraLAX prior to coming to the ER. The patient has been seen here multiple times, has been fairly unresponsive with the staff, and has been found to be methamphetamine positive. When I am trying to talk with the patient and ask him if he is hurting anywhere, he denies any pain, he states he has had no fevers or chills, or any other sick-like symptoms like nausea/vomiting/diarrhea. He did tell the nurse that he has been taking meth, but states he did not take any today, but again he is not making much sense, he has been visualized to have some shaking behaviors, but when I am out of the room, he stopped shaking. He did walk back to the ER room without assistance, and was alert and oriented at that time. - Related Data Allergies Allergy/AdvReac Type Severity Reaction Status Date / Time Sulfa (Sulfonamide Allergy Severe Hives Verified 02/21/21 16:40 Antibiotics) Home Meds: Home Meds . [Unable to Verify Home Med List] 02/07/21 [History] Past Medical History - Past Health History Medical/Surgical History: Denies Medical/Surgical History Psychiatric History: Reports: Addiction, Anxiety, Psychosis - Infectious Disease History Infectious Disease History: Reports: Hepatitis C Other Infectious Disease History: pt refusing to look at nurse or answer further questions - Past Surgical History HEENT Surgical History: Reports: Oral Surgery, Tonsillectomy Social & Family History - Family History Family Medical History: No Pertinent Family History - Tobacco Use Tobacco Use Status *Q: Unknown Ever Used Tobacco - Caffeine Use Caffeine Use: Reports: None Other Caffeine Use: unable to answer Caffeine Use Comment: Unknown. - Recreational Drug Use Recreational Drug Type: Reports: Benzodiazepines, Marijuana/Hashish, Methamphetamine - Living Situation & Occupation Living situation: Reports: Other, Single Occupation: Unemployed ED ROS GENERAL - Review of Systems Review Of Systems: Comprehensive ROS is negative, except as noted in HPI. ED EXAM, GENERAL - Physical Exam Exam: See Below Exam Limited By: Intoxication General Appearance: Alert, WD/WN, No Apparent Distress, Other (pt is visualized to have "shaking" behaviors. When he is not being questioned his shaking behaviors stop.) Respiratory/Chest: No Respiratory Distress, Lungs Clear, Normal Breath Sounds, No Accessory Muscle Use, Chest Non-Tender Cardiovascular: Normal Peripheral Pulses, Regular Rate, Rhythm, No Edema Peripheral Pulses: 2+: Radial (L), Radial (R) Extremities: Normal Capillary Refill Neurological: Alert Psychiatric: Other (pt does appear to be acutely intoxicated from some substance - likely meth d/t history) Skin Exam: Warm, Dry, Intact, Normal Color, No Rash Course - Vital Signs Last Recorded V/S: Last Vital Signs Temp 97.2 F 02/21/21 16:37 Pulse 104 H 02/21/21 16:37 Resp 18 02/21/21 16:37 BP 150/95 H 02/21/21 16:37 Pulse Ox 99 02/21/21 16:37 - Re-Assessments/Exams Free Text/Narrative Re-Assessment/Exam: 02/21/21 16:59 Patient presents to the ER for his shaking behaviors, patient is not very verbal with me or nursing staff, the shaking behaviors that he is having, do stop when people are not in the room, questioning him. At this point in time he is not complaining of any fevers or chills, cough or shortness of breath, any sort of sick-like symptoms. We will try to observe him for a period of time, and hopefully discharge him home with general recommendations. 02/21/21 17:22 I was able to speak with the patient, now he does state that he did use meth this morning however thinks it was just a few hours ago. States that he likes to snort this, and use the typical dose for himself, he states that he would like to go home and sleep at this time. We will go ahead and discharge him home, as he does not seem to be a harm to himself at this time. Departure - Departure Time of Disposition: 17:24 Disposition: Home, Self-Care 01 Condition: Good Clinical Impression: Methamphetamine addiction, Methamphetamine abuse - Discharge Information *PRESCRIPTION DRUG MONITORING PROGRAM REVIEWED*: No *COPY OF PRESCRIPTION DRUG MONITORING REPORT IN PATIENT ELZBIETA: No Instructions: Methamphetamines Use Disorder Referrals: PCP,None [Primary Care Provider] - Forms: ED Department Discharge Additional Instructions: You were evaluated in the ER today for your methamphetamine use. No worrisome signs or symptoms were found on today's exam, along with no physical abnormalities on exam. At this time it does appear that you are high on methamphetamines, and will need to go home and just sleep this off. You were given some PO Ativan in the ER; this should help you be able to sleep through the night. If you should desire stopping methamphetamine use, [facility] [place] would be able to help you with some of the services, please call [phone] in the morning and ask for open intake, so you can get some help from your methamphetamine abuse. [facility] emergency crisis number is [phone]. Sepsis Event Note (ED) - Evaluation Sepsis Screening Result: No Definite Risk - Focused Exam Vital Signs: Vital Signs Temp Pulse Resp BP Pulse Ox 02/21/21 16:37 97.2 F 104 H 18 150/95 H 99
[2021-02-21] MEDS ORDERED: LORazepam 1 MG Tab PO ONE (17:23)
== END 2021-02-21 17:36 | disposition home or self-care (01) ==
LOC: JD.ED 16:24
DX: F15.20 Other stimulant dependence, uncomplicated (principal); Z88.2 Allergy status to sulfonamides
CPT/HCPCS: 99283; A9270

== ENCOUNTER 2021-02-23 02:28 | Emergency (ER) | payer SELFPAY ==
[2021-02-23 02:41] VITALS: BP 132/92; PULSE 118
--- NOTE | 2021-02-23 02:57 | EDM.PDOCBH ---
ED HPI GENERAL MEDICAL PROBLEM - General Chief Complaint: Drug or Alcohol Abuse Stated Complaint: DOING THINGS OUT OF THE ORDINARY Time Seen by Provider: 02/23/21 02:42 Source of Information: Reports: Patient History Limitations: Reports: Intoxication - History of Present Illness INITIAL COMMENTS - FREE TEXT/NARRATIVE: The patient was dropped off by a friend because he was doing odd things and she needed to get some rest. He is not sure what she meant. He says he is just waiting for a friend. He has some pain to his upper back but no fever, chills, cough, chest pain, abdominal pain, nausea or vomiting. He denies drinking or doing drugs. Onset: Gradual Duration: Day(s): Location: Reports: Back Quality: Reports: Ache Severity: Mild Improves with: Reports: None Worsens with: Reports: None Associated Symptoms: Reports: No Other Symptoms - Related Data Allergies Allergy/AdvReac Type Severity Reaction Status Date / Time Sulfa (Sulfonamide Allergy Severe Hives Verified 02/23/21 02:39 Antibiotics) Home Meds: Home Meds . [Unable to Verify Home Med List] 02/07/21 [History] Past Medical History - Past Health History Medical/Surgical History: Denies Medical/Surgical History Psychiatric History: Reports: Addiction, Anxiety, Psychosis - Infectious Disease History Infectious Disease History: Reports: Hepatitis C Other Infectious Disease History: pt refusing to look at nurse or answer further questions - Past Surgical History HEENT Surgical History: Reports: Oral Surgery, Tonsillectomy Social & Family History - Family History Family Medical History: No Pertinent Family History - Tobacco Use Tobacco Use Status *Q: Unknown Ever Used Tobacco - Caffeine Use Caffeine Use: Reports: None Other Caffeine Use: unable to answer Caffeine Use Comment: Unknown. - Recreational Drug Use Recreational Drug Use Frequency: Patient Refuses To Answer - Living Situation & Occupation Living situation: Reports: Other, Single Occupation: Unemployed ED ROS GENERAL - Review of Systems Review Of Systems: See Below Constitutional: Reports: No Symptoms HEENT: Reports: No Symptoms Respiratory: Reports: No Symptoms Cardiovascular: Reports: No Symptoms Endocrine: Reports: No Symptoms GI/Abdominal: Reports: No Symptoms : Reports: No Symptoms Musculoskeletal: Reports: Back Pain ED EXAM, BEHAVIORAL HEALTH - Physical Exam Exam: See Below Exam Limited By: No Limitations General Appearance: Alert, No Apparent Distress Ears: Normal External Exam Nose: Normal Inspection Head: Atraumatic, Normocephalic Neck: Normal Inspection Respiratory/Chest: No Respiratory Distress, Lungs Clear, Normal Breath Sounds Cardiovascular: Regular Rate, Rhythm, No Edema, No Murmur GI/Abdominal: Soft, Non-Tender, No Organomegaly, No Mass Back Exam: Normal Inspection Extremities: Normal Inspection COURSE, BEHAVIORAL HEALTH COMP - Course Vital Signs: Last Vital Signs Temp 97.5 F 02/23/21 02:39 Pulse 118 H 02/23/21 02:39 Resp 15 02/23/21 02:39 BP 132/92 H 02/23/21 02:39 Pulse Ox 96 02/23/21 02:39 Orders, Labs, Meds: Active Orders 24 hr Category Date Time Status Cardiac Monitoring [RC] . DIRECTED Care 02/23/21 02:53 Active COMPREHENSIVE METABOLIC PN,CMP [CHEM] Stat Lab 02/23/21 03:06 Received DRUG SCREEN, URINE [URCHEM] Stat Lab 02/23/21 02:53 Ordered ETHANOL BLOOD MEDICAL [CHEM] Stat Lab 02/23/21 03:06 Received Laboratory Tests 02/23/21 Range/Units 03:06 WBC 10.33 H (4.23-9.07) K/mm3 RBC 5.04 (4.63-6.08) M/mm3 Hgb 16.4 (13.7-17.5) gm/dl Hct 47.5 (40.1-51.0) % MCV 94.2 H (79.0-92.2) fl MCH 32.5 H (25.7-32.2) pg MCHC 34.5 (32.2-35.5) g/dl RDW Std Deviation 42.9 (35.1-43.9) fL Plt Count 366 H D (163-337) K/mm3 MPV 9.6 (9.4-12.3) fl Neut % (Auto) 54.9 (34.0-67.9) % Lymph % (Auto) 27.0 (21.8-53.1) % [place] % (Auto) 13.4 H (5.3-12.2) % Eos % (Auto) 3.7 (0.8-7.0) Baso % (Auto) 0.7 (0.1-1.2) % Neut # (Auto) 5.68 H (1.78-5.38) K/mm3 Lymph # (Auto) 2.79 (1.32-3.57) K/mm3 [place] # (Auto) 1.38 H (0.30-0.82) K/mm3 Eos # (Auto) 0.38 (0.04-0.54) K/mm3 Baso # (Auto) 0.07 (0.01-0.08) K/mm3 Re-Assessment/Re-Exam: I ordered labs and a urine drug screen. The patient would like to go. I have no reason to keep him. Departure - Departure Time of Disposition: 03:35 Disposition: Home, Self-Care 01 Condition: Good Clinical Impression: Behavior concern in adult - Discharge Information *PRESCRIPTION DRUG MONITORING PROGRAM REVIEWED*: Not Applicable *COPY OF PRESCRIPTION DRUG MONITORING REPORT IN PATIENT ELZBIETA: Not Applicable Referrals: PCP,None [Primary Care Provider] - Forms: ED Department Discharge Additional Instructions: Go home and rest. Please return if you are worse. Sepsis Event Note (ED) - Evaluation Sepsis Screening Result: No Definite Risk - Focused Exam Vital Signs: Vital Signs Temp Pulse Resp BP Pulse Ox 02/23/21 02:39 97.5 F 118 H 15 132/92 H 96 - My Orders Last 24 Hours: My Active Orders 02/23/21 02:53 Cardiac Monitoring [RC] . DIRECTED DRUG SCREEN, URINE [URCHEM] Stat 02/23/21 03:06 COMPREHENSIVE METABOLIC PN,CMP [CHEM] Stat ETHANOL BLOOD MEDICAL [CHEM] Stat - Assessment/Plan Last 24 Hours: My Active Orders 02/23/21 02:53 Cardiac Monitoring [RC] . DIRECTED DRUG SCREEN, URINE [URCHEM] Stat 02/23/21 03:06 COMPREHENSIVE METABOLIC PN,CMP [CHEM] Stat ETHANOL BLOOD MEDICAL [CHEM] Stat
== END 2021-02-23 03:38 | disposition home or self-care (01) ==
LOC: JD.ED 02:28
DX: F91.9 Conduct disorder, unspecified (principal); M54.6 Pain in thoracic spine; Z88.2 Allergy status to sulfonamides
CPT/HCPCS: 36415; 80053; 80307; 85025; 99283

== ENCOUNTER 2021-02-24 15:52 | Emergency (ER) | payer SELFPAY ==
--- NOTE | 2021-02-24 16:40 | EDM.PDOC ---
ED HPI GENERAL MEDICAL PROBLEM - General Chief Complaint: Behavioral/Psych Stated Complaint: MEDICAL CLEARANCE FOR [facility] Time Seen by Provider: 02/24/21 16:34 - History of Present Illness INITIAL COMMENTS - FREE TEXT/NARRATIVE: 40-year-old male returns the emergency room for medical clearance to [facility] Patient states he was sent here by [facility] for medical clearance. The patient has been trying to decrease his alcohol has not had anything to drink since Friday night except for last night he had quite a bit. He is not use drugs since Friday night however. At this time the patient denies any complaints of pain. He does state he is having a hard time getting some sleep. Patient has had multiple issues with addiction to alcohol and drugs mostly methamphetamine. Patient denies any other complaints at this time. Generalized Pain Score (Numeric/FACES): 4 - Related Data Allergies Allergy/AdvReac Type Severity Reaction Status Date / Time Sulfa (Sulfonamide Allergy Severe Hives Verified 02/23/21 02:39 Antibiotics) Home Meds: Home Meds . [No Known Home Meds] 02/24/21 [History] Past Medical History - Past Health History Medical/Surgical History: Denies Medical/Surgical History Psychiatric History: Reports: Addiction, Anxiety, Psychosis - Infectious Disease History Infectious Disease History: Reports: Hepatitis C Other Infectious Disease History: pt refusing to look at nurse or answer further questions - Past Surgical History HEENT Surgical History: Reports: Oral Surgery, Tonsillectomy Social & Family History - Family History Family Medical History: No Pertinent Family History - Tobacco Use Tobacco Use Status *Q: Current Every Day Tobacco User Years of Tobacco use: 20 Packs/Tins Daily: 0.1 - Caffeine Use Caffeine Use: Reports: None Other Caffeine Use: unable to answer Caffeine Use Comment: Unknown. - Living Situation & Occupation Living situation: Reports: Other, Single Occupation: Unemployed ED ROS GENERAL - Review of Systems Review Of Systems: See Below Constitutional: Reports: No Symptoms HEENT: Reports: No Symptoms Respiratory: Reports: No Symptoms Cardiovascular: Reports: No Symptoms Endocrine: Reports: No Symptoms GI/Abdominal: Reports: No Symptoms : Reports: No Symptoms Musculoskeletal: Reports: No Symptoms Skin: Reports: No Symptoms ED EXAM, GENERAL - Physical Exam Exam: See Below Exam Limited By: Other (Patient is a poor historian. I have seen the patient several times in the past and this seems to be his baseline) General Appearance: Alert, No Apparent Distress Eye Exam: Bilateral Eye: Normal Inspection Ears: Normal External Exam, Normal Canal, Hearing Grossly Normal, Normal TMs Nose: Normal Inspection, Normal Mucosa, No Blood Throat/Mouth: Normal Inspection, Normal Lips, Normal Gums, Normal Oropharynx, Normal Voice, No Airway Compromise. No: Normal Teeth (His teeth are in poor state of repair) Head: Atraumatic, Normocephalic Neck: Normal Inspection, Supple, Non-Tender, Full Range of Motion. No: Lymphadenopathy (L), Lymphadenopathy (R) Respiratory/Chest: No Respiratory Distress, Lungs Clear, Normal Breath Sounds Cardiovascular: Regular Rate, Rhythm, No Edema, No Murmur GI/Abdominal: Normal Bowel Sounds, Soft, Non-Tender Extremities: Normal Inspection, No Pedal Edema Psychiatric: Other (He is not anxious or suicidal at this time) Course - Vital Signs Last Recorded V/S: Last Vital Signs Temp 36.4 C 02/24/21 18:10 Pulse 72 02/24/21 18:10 Resp 16 02/24/21 18:10 BP 144/98 H 02/24/21 18:10 Pulse Ox 97 02/24/21 18:10 - Orders/Labs/Meds Labs: Laboratory Tests 02/24/21 02/24/21 02/24/21 Range/Units 16:20 16:20 17:07 WBC 9.19 H (4.23-9.07) K/mm3 RBC 4.88 (4.63-6.08) M/mm3 Hgb 15.9 (13.7-17.5) gm/dl Hct 45.3 (40.1-51.0) % MCV 92.8 H (79.0-92.2) fl MCH 32.6 H (25.7-32.2) pg MCHC 35.1 (32.2-35.5) g/dl RDW Std Deviation 42.3 (35.1-43.9) fL Plt Count 303 (163-337) K/mm3 MPV 9.3 L (9.4-12.3) fl Neut % (Auto) 66.7 (34.0-67.9) % Lymph % (Auto) 18.2 L (21.8-53.1) % George % (Auto) 11.8 (5.3-12.2) % Eos % (Auto) 2.4 (0.8-7.0) Baso % (Auto) 0.5 (0.1-1.2) % Neut # (Auto) 6.13 H (1.78-5.38) K/mm3 Lymph # (Auto) 1.67 (1.32-3.57) K/mm3 George # (Auto) 1.08 H (0.30-0.82) K/mm3 Eos # (Auto) 0.22 (0.04-0.54) K/mm3 Baso # (Auto) 0.05 (0.01-0.08) K/mm3 PT (9.7-12.0) SECONDS INR Sodium (136-145) mEq/L Potassium (3.5-5.1) mEq/L Chloride (98-107) mEq/L Carbon Dioxide (21-32) mEq/L Anion Gap (5-15) BUN (7-18) mg/dL Creatinine (0.7-1.3) mg/dL Est Cr Clr Drug Dosing mL/min Estimated GFR (MDRD) (>60) mL/min BUN/Creatinine Ratio (14-18) Glucose (70-99) mg/dL Calcium (8.5-10.1) mg/dL Total Bilirubin (0.2-1.0) mg/dL AST (15-37) U/L ALT (16-63) U/L Alkaline Phosphatase (46-116) U/L Total Protein (6.4-8.2) g/dl Albumin (3.4-5.0) g/dl Globulin gm/dL Albumin/Globulin Ratio (1-2) Urine Color Light yellow (Yellow) Urine Appearance Clear (Clear) Urine pH 7.0 (5.0-8.0) Ur Specific [place] 1.015 (1.005-1.030) Urine Protein Negative (Negative) Urine Glucose (UA) Negative (Negative) Urine Ketones Negative (Negative) Urine Occult Blood Negative (Negative) Urine Nitrite Negative (Negative) Urine Bilirubin Negative (Negative) Urine Urobilinogen 0.2 (0.2-1.0) Ur Leukocyte Esterase Negative (Negative) Urine RBC Not seen (0-5) /hpf Urine WBC Not seen (0-5) /hpf Ur Squamous Epith Cells Not seen (0-5) /hpf Urine Bacteria Rare (FEW) /hpf Urine Mucus Not seen (FEW) /hpf Salicylates (2.8-20) mg/dL Urine Opiates Screen Negative (MGDIFO=983) Ur Buprenorphine Scrn Negative (CUTOFF=10) Ur Oxycodone Screen Negative (ZIN2XX=399) Urine Methadone Screen Negative (QUK4QK=887) Ur Propoxyphene Screen Negative (HVOLPK=019) Acetaminophen (10-30) ug/mL Ur Barbiturates Screen Negative (IZSJPA=187) Ur Tricyclics Screen Negative (IIGWIN=164) Ur Phencyclidine Scrn Negative (CUTOFF=25) Ur Amphetamine Screen Negative (FXZHWA=690) U Methamphetamines Scrn Negative (DBOEZQ=792) U Benzodiazepines Scrn Negative (AYWPIV=802) U Cocaine Metab Screen Negative (LFGINL=573) U Marijuana (THC) Screen Negative (CUTOFF=50) Ethyl Alcohol (0.00) gm% 02/24/21 02/24/21 02/24/21 Range/Units 17:07 17:07 17:07 WBC (4.23-9.07) K/mm3 RBC (4.63-6.08) M/mm3 Hgb (13.7-17.5) gm/dl Hct (40.1-51.0) % MCV (79.0-92.2) fl MCH (25.7-32.2) pg MCHC (32.2-35.5) g/dl RDW Std Deviation (35.1-43.9) fL Plt Count (163-337) K/mm3 MPV (9.4-12.3) fl Neut % (Auto) (34.0-67.9) % Lymph % (Auto) (21.8-53.1) % George % (Auto) (5.3-12.2) % Eos % (Auto) (0.8-7.0) Baso % (Auto) (0.1-1.2) % Neut # (Auto) (1.78-5.38) K/mm3 Lymph # (Auto) (1.32-3.57) K/mm3 George # (Auto) (0.30-0.82) K/mm3 Eos # (Auto) (0.04-0.54) K/mm3 Baso # (Auto) (0.01-0.08) K/mm3 PT 11.3 (9.7-12.0) SECONDS INR 1.06 Sodium 141 (136-145) mEq/L Potassium 3.8 (3.5-5.1) mEq/L Chloride 103 (98-107) mEq/L Carbon Dioxide 27 (21-32) mEq/L Anion Gap 14.8 (5-15) BUN 7 (7-18) mg/dL Creatinine 0.9 (0.7-1.3) mg/dL Est Cr Clr Drug Dosing 117.99 mL/min Estimated GFR (MDRD) > 60 (>60) mL/min BUN/Creatinine Ratio 7.8 L (14-18) Glucose 111 H (70-99) mg/dL Calcium 8.5 (8.5-10.1) mg/dL Total Bilirubin 0.3 (0.2-1.0) mg/dL AST 15 (15-37) U/L ALT 40 (16-63) U/L Alkaline Phosphatase 97 (46-116) U/L Total Protein 6.8 (6.4-8.2) g/dl Albumin 3.7 (3.4-5.0) g/dl Globulin 3.1 gm/dL Albumin/Globulin Ratio 1.2 (1-2) Urine Color (Yellow) Urine Appearance (Clear) Urine pH (5.0-8.0) Ur Specific [place] (1.005-1.030) Urine Protein (Negative) Urine Glucose (UA) (Negative) Urine Ketones (Negative) Urine Occult Blood (Negative) Urine Nitrite (Negative) Urine Bilirubin (Negative) Urine Urobilinogen (0.2-1.0) Ur Leukocyte Esterase (Negative) Urine RBC (0-5) /hpf Urine WBC (0-5) /hpf Ur Squamous Epith Cells (0-5) /hpf Urine Bacteria (FEW) /hpf Urine Mucus (FEW) /hpf Salicylates 2.1 L (2.8-20) mg/dL Urine Opiates Screen (TLTRTI=835) Ur Buprenorphine Scrn (CUTOFF=10) Ur Oxycodone Screen (UHV8NG=918) Urine Methadone Screen (HWF6AA=053) Ur Propoxyphene Screen (EOPLFW=648) Acetaminophen 0 L (10-30) ug/mL Ur Barbiturates Screen (XQWPSC=663) Ur Tricyclics Screen (KYFUVB=489) Ur Phencyclidine Scrn (CUTOFF=25) Ur Amphetamine Screen (UFGRZR=365) U Methamphetamines Scrn (NUKSLD=196) U Benzodiazepines Scrn (JMHWHD=051) U Cocaine Metab Screen (ISDGOO=822) U Marijuana (THC) Screen (CUTOFF=50) Ethyl Alcohol 0.00 (0.00) gm% - Re-Assessments/Exams Free Text/Narrative Re-Assessment/Exam: 02/24/21 18:01 Patient informed [place] that he just came here to get some sleep and he really does not want to go in for treatment. At this time he is insistent on going home. Some labs are still pending but we will let him go home. Departure - Departure Time of Disposition: 18:02 Disposition: Home, Self-Care 01 Clinical Impression: Alcoholism, Drug abuse, Alcohol abuse - Discharge Information Instructions: Alcohol Abuse and Dependence Information, Adult, Substance Use Disorder Referrals: PCP,None [Primary Care Provider] - Forms: ED Department Discharge Additional Instructions: Return to the emergency room as needed. Return to the emergency room for medical clearance when you are ready to go in for treatment. Sepsis Event Note (ED) - Evaluation Sepsis Screening Result: No Definite Risk - Focused Exam Vital Signs: Vital Signs Temp Pulse Resp BP Pulse Ox 02/24/21 18:10 36.4 C 72 16 144/98 H 97 02/24/21 16:11 36.1 C 84 20 140/103 H 100
[2021-02-24 17:39] LABS: ACETAMINOPHEN 0 ug/mL (10-30)
[2021-02-24 18:16] VITALS: BP 144/98; PULSE 72
== END 2021-02-24 18:10 | disposition home or self-care (01) ==
LOC: JD.ED 15:52
DX: F10.20 Alcohol dependence, uncomplicated (principal); F19.10 Other psychoactive substance abuse, uncomplicated; Z72.0 Tobacco use; Z88.2 Allergy status to sulfonamides
CPT/HCPCS: 36415; 80053; 80143; 80179; 80306; 80307; 81001; 85025; 85610; 99283

== ENCOUNTER 2021-11-21 21:38 | Emergency (ER) | payer SELFPAY ==
[2021-11-21 21:45] VITALS: BP 125/75; PULSE 74
[2021-11-21] MEDS ORDERED: Ketorolac 60 MG/2 ML SDV IM ONE (22:20)
== END 2021-11-22 00:01 | disposition other institution (70) ==
LOC: JD.ED 21:38
DX: S90.822A Blister (nonthermal), left foot, initial encounter (principal); S90.821A Blister (nonthermal), right foot, initial encounter; L97.529 Non-pressure chronic ulcer of other part of left foot with unspecified severity; F12.10 Cannabis abuse, uncomplicated; F15.10 Other stimulant abuse, uncomplicated; Z88.2 Allergy status to sulfonamides
CPT/HCPCS: 36415; 73610; 73630; 80306; 80307; 96372; 99284; J1885

== ENCOUNTER 2022-01-14 19:47 | Emergency (ER) | payer MEDICAID ==
[2022-01-14 20:04] VITALS: BP 179/139; PULSE 134
== END 2022-01-14 20:30 | disposition left against medical advice (07) ==
LOC: JD.ED 19:47
DX: F99 Mental disorder, not otherwise specified (principal); F91.9 Conduct disorder, unspecified; Z88.2 Allergy status to sulfonamides
CPT/HCPCS: 99282; 99283

== ENCOUNTER 2022-01-15 11:00 | Emergency (ER) | payer MEDICAID ==
[2022-01-15 12:23] VITALS: BP 116/78
[2022-01-15] MEDS ORDERED: LORazepam 1 MG Tab PO ONE (12:29)
[2022-01-15 13:10] LABS: ACETAMINOPHEN 0 ug/mL (10-30)
[2022-01-15] MEDS ORDERED: QUEtiapine 100 MG Tab PO ONE (13:31)
[2022-01-16 00:45] VITALS: PULSE 68
== END 2022-01-16 06:57 | disposition other institution (70) ==
LOC: JD.ED 11:00
DX: F99 Mental disorder, not otherwise specified (principal); Z88.2 Allergy status to sulfonamides; Z20.822 Contact with and (suspected) exposure to COVID-19
CPT/HCPCS: 36415; 80053; 80143; 80179; 80306; 80307; 84443; 85007; 85027; 87635; 93005; 99283; A9270; 93010; 99284; U0002

== ENCOUNTER 2022-02-26 13:19 | Emergency (ER) | payer MEDICAID ==
[2022-02-26 13:36] VITALS: BP 165/116; PULSE 95
[2022-02-26] MEDS ORDERED: Sodium Chloride 0.9% 10 ML Syringe FLUSH PRN (14:03)
[2022-02-26] MEDS ORDERED: Sodium Chloride 0.9% 1,000 ML IV ONE (14:03)
== END 2022-02-26 15:52 | disposition home or self-care (01) ==
LOC: JD.ED 13:19
DX: R41.82 Altered mental status, unspecified (principal); F15.10 Other stimulant abuse, uncomplicated; Z88.2 Allergy status to sulfonamides
CPT/HCPCS: 36415; 80053; 80143; 80179; 80306; 80307; 84443; 85025; 99282; 99284